=== PATIENT | female | born 1990 | race Caucasian/White ===

== ENCOUNTER 2022-02-24 08:25 | Outpatient (CLI) | payer OTHER, SELFPAY ==
--- NOTE | ~2022-02-24 | US_ITS ---
EXAMINATION: US abdomen limited EXAM DATE: 02/24/2022 09:07 INDICATION: R10.11 - Right upper quadrant pain. TECHNIQUE: Multiple grayscale and Doppler images of the abdomen right upper quadrant were obtained (b y a technologist who performed the scan) and subsequently reviewed. There is no prior study for rasheed crenshaw. FINDINGS: The pancreatic head and body are normal in appearance. The pancreatic tail is not visualized. The l iver has normal echogenicity and contour. There are no focal liver lesions identified. There is no evidence of intrahepatic biliary duct dilation. Portal venous flow was seen in the hepatopedal, nor mal direction and has normal Doppler waveform. No right-sided hydronephrosis. Common bile duct measures 5 mm, which is normal. The gallbladder wall is normal in thickness, with ex pected amount of distention. No sonographic evidence of pericholecystic fluid. There is no cholelit hiases. Technologist performing exam reports patient did not demonstrate sonographic Ray's sign. Please note that this sign is less reliable in patients who have received pain medication. IMPRESSION: Unremarkable abdominal ultrasound exam. Reviewed, dictated and finalized at location A.
--- NOTE | 2022-02-25 11:29 | WPDHOLTEREM ---
Holter/Event Monitor Holter/Event Monitor Date of procedure: 02/24/22 Holter/Event Procedure: 24 Hr Holter Monitor Indications: Palpitations Conclusion: 1. 24 hour holter monitor on 02/24/22. 2. Underlying rhythm is sinus rhythm. HR range 52-129 bpm; average HR 83 bpm. 3. There are 59 premature supraventricular complexes. No supraventricular tachycardia. 4. There are 434 premature ventricular complexes, 2 ventricular couplets, 6 ventricular trigeminy. No ventricular tachycardia. 5. No sinoatrial or atrioventricular blocks. No significant pauses greater than 2 seconds. 6. Patient reports 2 episodes of fluttering which demonstrate sinus rhythm, HR range 76-90 bpm.
== END 2022-02-24 08:26 | disposition home or self-care (01) ==
PROVIDERS: PCP Family Medicine; Visit Provider Family Medicine
DX: R00.2 Palpitations (principal); R10.11 Right upper quadrant pain
CPT/HCPCS: 76705; 93225; 93226

== ENCOUNTER 2022-03-11 07:06 | Outpatient (CLI) | payer OTHER, SELFPAY ==
[2022-03-11 08:21] LABS: Free T4 Free Thyroxine 1.06 ng/dL (0.76-1.46); Glucose 85 mg/dL (70-99); Thyroid Stimulating Hormone 0.76 uIU/mL (0.36-3.74)
[2022-03-14 05:56] LABS: DHEA-Sulfate 212 mcg/dL (18-391); Insulin Level Total 9.3 uIU/mL (<=19.6)
[2022-03-15 15:45] LABS: Testosterone Total 30 ng/dL (2-45)
== END 2022-03-11 07:07 | disposition home or self-care (01) ==
LOC: CHSLAB 07:09
PROVIDERS: PCP Family Medicine
DX: R63.5 Abnormal weight gain (principal); L68.0 Hirsutism; R53.83 Other fatigue
CPT/HCPCS: 36415; 82627; 82947; 83525; 84402; 84403; 84439; 84443